=== PATIENT | male | born 1965 | race Caucasian/White ===

== ENCOUNTER 2024-08-17 00:59 | Observation (INO) | payer BC ==
--- NOTE | 2024-08-17 01:26 | ED ---
Abdominal Pain HPI - General Source: patient, family () Mode of arrival: ambulatory Limitations: no limitations <Alaina Greco - Last Filed: 08/17/24 04:12> <Edu Schreiber - Last Filed: 08/17/24 05:58> <Crispin Mckoy - Last Filed: 08/17/24 08:45> - General Chief Complaint: Abdominal Pain Stated Complaint: Abd Pain Time Seen by Provider: 08/17/24 01:26 - History of Present Illness Initial Comments: 58-year-old male presented the ER for evaluation of abdominal pain. Patient states yesterday he started to experience a severe lower burning abdominal discomfort. He does admit to radiation to his back. Patient was seen at [facility] twice with negative workup. Patient was discharged home with [place]. Patient states taking [place] does not improve symptoms. He denies any n ausea, vomiting, fevers, diarrhea, constipation, urinary complaints, scrotal pain or swelling or abnormal penile discharge. Patient is extremely anxious frequently pacing and unable to sit still. On examination, patient requesting medication to aid with sleep. Patient reports past medical history of hypertension and hyperlipidemia. Denies any dizziness, lightheadedness, chest pain, shortness of breath or peripheral edema. Patient reports he did fall on a ladder landing on abdomen weeks ago but that pain resolved prior to yesterday. (Alaina Greco) - Related Data Allergies Allergy/AdvReac Type Severity Reaction Status Date / Time No Known Allergies Allergy Verified 08/17/24 01:06 Review of Systems ROS Other: All systems not noted in ROS Statement are negative. <Alaina Greco - Last Filed: 08/17/24 04:12> ROS Other: All systems not noted in ROS Statement are negative. <Edu Schreiber - Last Filed: 08/17/24 05:58> ROS Other: All systems not noted in ROS Statement are negative. <Crispin Mckoy - Last Filed: 08/17/24 08:45> ROS Statement: Those systems with pertinent positive or pertinent negative responses have been documented in the HPI. Past Medical History Past Medical History: Hyperlipidemia, Hypertension History of Any Multi-Drug Resistant Organisms: None Reported Past Surgical History: No Surgical Hx Reported Past Psychological History: No Psychological Hx Reported Smoking Status: Never smoker Past Alcohol Use History: Occasional Past Drug Use History: None Reported <Alaina Greco - Last Filed: 08/17/24 04:12> General Exam Limitations: no limitations General appearance: alert, in no apparent distress, anxious (Pacing exam room unable to still) Respiratory exam: Present: normal lung sounds bilaterally. Absent: respiratory distress, wheezes, rales, rhonchi, stridor Cardiovascular Exam: Present: regular rate, normal rhythm, normal heart sounds. Absent: systolic murmur, diastolic murmur, rubs, gallop, clicks GI/Abdominal exam: Present: soft, normal bowel sounds. Absent: distended, tenderness, guarding, rebound, rigid Neurological exam: Present: alert, oriented X3, CN II-XII intact Psychiatric exam: Present: anxious (Pacing exam room unable to sit) Skin exam: Present: warm, dry, intact, normal color. Absent: rash <Alaina Greco - Last Filed: 08/17/24 04:12> Course <Alaina Greco - Last Filed: 08/17/24 04:12> Vital Signs 08/17/24 08/17/24 08/17/24 01:03 04:25 06:40 Temperature 98 F 97.9 F Pulse Rate 74 74 60 Respiratory 18 20 18 Rate Blood Pressure 126/73 163/92 165/93 O2 Sat by Pulse 95 95 100 Oximetry 08/17/24 08:12 Temperature Pulse Rate 86 Respiratory 17 Rate Blood Pressure 176/107 O2 Sat by Pulse 94 L Oximetry - Reevaluation(s) Reevaluation #1: 08/17/24 04:09 PAtient signed out to Dr. Schreiber pending CT results and disposition. (Alaina Greco) Medical Decision Making - Lab Data Result diagrams: 08/17/24 01:30 08/17/24 01:30 <Alaina Greco - Last Filed: 08/17/24 04:12> - Lab Data Result diagrams: 08/17/24 01:30 08/17/24 01:30 <Edu Schreiber - Last Filed: 08/17/24 05:58> - Lab Data Result diagrams: 08/17/24 01:30 08/17/24 01:30 <Crispin Mckoy - Last Filed: 06/13/25 08:45> - Medical Decision Making Was pt. sent in by a medical professional or institution (, PETER, EXTRACTOR OPERATOR, urgent care, hospital, or prison...) When possible be specific @ -[No] Did you speak to anyone other than the patient for history (EMS, parent, family, police, friend...)? What history was obtained from this source @ -[No] Did you review nursing and triage notes (agree or disagree)? Why? @ -[I reviewed and agree with nursing and triage notes] Were old charts reviewed (outside hosp., previous admission, EMS record, old EKG, old radiological studies, urgent care reports/EKG's, prison records)? Report findings @ -[No old charts were reviewed] Differential Abdominal Pain Men: Appendicitis, cholecystitis, diverticulosis, ischemic bowel, pancreatitis, hepatitis, UTI, gastroenteritis, AAA, incarcerated hernia, bowel obstruction, constipation, inflammatory bowel, hepatitis, peptic ulcer disease, splenic infarction, perforated viscus, testicular torsion, this is not meant to be an all-inclusive list EKG interpreted by me (3pts min.). @ -[EKG: Sinus rhythm incomplete right bundle branch block rate is 66, OR interval 154, QRS duration 105, QTc [address] segment elevation X-rays interpreted by me (1pt min.). @ -[None done] CT interpreted by me (1pt min.). @ -[None done] U/S interpreted by me (1pt. min.). @ -[None done] What testing was considered but not performed or refused? (CT, X-rays, U/S, labs)? Why? @ -[None] What meds were considered but not given or refused? Why? @ -[None] Did you discuss the management of the patient with other professionals (professionals i.e. , PETER, EXTRACTOR OPERATOR, lab, RT, psych nurse, bilingual social worker, policy intern, teacher, helicopter officer, bottle caser)? Give summary @ -[No] Was smoking cessation discussed for >3mins.? @ -[No] Was critical care preformed (if so, how long)? @ -[No] Were there social determinants of health that impacted care today? How? (Homelessness, low income, unemployed, alcoholism, drug addiction, transportation, low edu. Level, literacy, decrease access to med. care, [place] [facility], rehab)? @ -[No] Was there de-escalation of care discussed even if they declined (Discuss DNR or withdrawal of care, Hospice)? DNR status @ -[No] What co-morbidities impacted this encounter? (DM, HTN, Smoking, COPD, CAD, Cancer, CVA, ARF, Chemo, Hep., AIDS, mental health diagnosis, sleep apnea, morbid obesity)? @ -[None] Was patient admitted / discharged? Hospital course, mention meds given and route, prescriptions, significant lab abnormalities, going to OR and other pertinent info. @ -[hospital course] Undiagnosed new problem with uncertain prognosis? @ -[No] Drug Therapy requiring intensive monitoring for toxicity (Heparin, Nitro, Insulin, Cardizem)? @ -[No] Were any procedures done? @ -[No] Diagnosis/symptom? @ -[default] Acute, or Chronic, or Acute on Chronic? @ -[default] Uncomplicated (without systemic symptoms) or Complicated (systemic symptoms)? @ -[default] Side effects of treatment? @ -[No] Exacerbation, Progression, or Severe Exacerbation? @ -[No] Poses a threat to life or bodily function? How? (Chest pain, USA, AR, pneumonia, PE, COPD, DKA, ARF, appy, cholecystitis, CVA, Diverticulitis, Homicidal, Suicidal, threat to staff... and all critical care pts) @ -[No] (Edu Schreiber) Patient signed out to me pending results of CT imaging. Briefly, patient presents with intractable abdominal pain for few days. Workup at another hospital was apparently unremarkable but Tracie presents today for further evaluation his pain is still continued. His diffuse abdominal pain all over. Apparently has required numerous doses of Dilaudid here in the department. Labs were relatively unremarkable. CT abdomen pelvis as interpreted by myself shows inflammation in the epigastrium but otherwise relatively unremarkable. On my exam, abdomen is soft with nonfocal tenderness. I updated the patient. Due to the intractable abdominal pain, he will be admitted to the hospital. Surgery consulted. I spoke with the admitting medicine physician, Dr. De La Torre of [facility] hospitalist group who accepted the admission. Patient made NPO. Diagnosis/symptom? @ -Intractable abdominal pain of unknown etiology Acute, or Chronic, or Acute on Chronic? @ -Acute Uncomplicated (without systemic symptoms) or Complicated (systemic symptoms)? @ -Complicated Side effects of treatment? @ -None Exacerbation, Progression, or Severe Exacerbation] @ -No Poses a threat to life or bodily function? @ -Potentially, yes (Crispin Mckoy) - Lab Data Lab Results 08/17/24 08/17/24 08/17/24 Range/Units 01:30 01:30 01:30 WBC 8.77 (4.50-10.00) 10*3/uL RBC 5.44 (4.40-5.60) 10*6/uL Hgb 17.1 H (13.0-17.0) g/dL Hct 48.2 (39.6-50.0) % MCV 88.6 (80.0-97.0) fL MCH 31.4 (27.0-32.0) pg MCHC 35.5 (32.0-37.0) g/dL Plt Count 279 (140-440) 10*3/uL MPV 8.8 L (9.5-12.2) fL Immature Gran % (Auto) 0.3 % Neutrophils % 84.5 % Lymphocytes % 6.2 % Monocytes % 8.6 % Eosinophils % 0.2 % Basophils % 0.2 % Immature Gran # 0.03 (0.00-0.04) 10*3/uL Neutrophils # 7.41 (1.80-7.70) 10*3/uL Lymphocytes # 0.54 L (0.90-5.00) 10*3/uL Monocytes # 0.75 (0.20-1.00) 10*3/uL Eosinophils # 0.02 L (0.04-0.35) 10*3/uL Basophils # 0.02 (0.00-0.10) 10*3/uL Sodium 133 L (137-145) mmol/L Potassium 4.1 (3.5-5.1) mmol/L Chloride 100 (98-107) mmol/L Carbon Dioxide 25 (22-30) mmol/L Anion Gap 8 mmol/L BUN 23 H (9-20) mg/dL Creatinine 1.12 (0.66-1.25) mg/dL Est GFR (CKD-EPI)AfAm 83 (>60 ml/min/1.73 sqM) Est GFR (CKD-EPI)NonAf 72 (>60 ml/min/1.73 sqM) Glucose 128 H (74-99) mg/dL Plasma Lactic Acid Anthony 1.1 (0.7-2.0) mmol/L Calcium 9.3 (8.4-10.2) mg/dL Total Bilirubin 1.2 (0.2-1.3) mg/dL AST 56 (17-59) U/L ALT 55 H (4-49) U/L Alkaline Phosphatase 116 (38-126) U/L Total Protein 7.5 (6.3-8.2) g/dL Albumin 4.6 (3.5-5.0) g/dL Amylase 49 (30-110) U/L Lipase 61 (23-300) U/L Urine Color Urine Appearance (Clear) Urine pH (5.0-8.0) Ur Specific [place] (1.001-1.035) Urine Protein (Negative) Urine Glucose (UA) (Negative) Urine Ketones (Negative) Urine Blood (Negative) Urine Nitrite (Negative) Urine Bilirubin (Negative) Urine Urobilinogen (<2.0) mg/dL Ur Leukocyte Esterase (Negative) Urine RBC (0-5) /hpf Urine WBC (0-5) /hpf Urine Mucus (None) /hpf Urine Opiates Screen (NotDetected) Ur Oxycodone Screen (NotDetected) Urine Methadone Screen (NotDetected) Ur Barbiturates Screen (NotDetected) U Tricyclic Antidepress (NotDetected) Ur Phencyclidine Scrn (NotDetected) Ur Amphetamines Screen (NotDetected) U Methamphetamines Scrn (NotDetected) U Benzodiazepines Scrn (NotDetected) Urine Cocaine Screen (NotDetected) U Marijuana (THC) Screen (NotDetected) 08/17/24 08/17/24 Range/Units 02:46 02:46 WBC (4.50-10.00) 10*3/uL RBC (4.40-5.60) 10*6/uL Hgb (13.0-17.0) g/dL Hct (39.6-50.0) % MCV (80.0-97.0) fL MCH (27.0-32.0) pg MCHC (32.0-37.0) g/dL Plt Count (140-440) 10*3/uL MPV (9.5-12.2) fL Immature Gran % (Auto) % Neutrophils % % Lymphocytes % % Monocytes % % Eosinophils % % Basophils % % Immature Gran # (0.00-0.04) 10*3/uL Neutrophils # (1.80-7.70) 10*3/uL Lymphocytes # (0.90-5.00) 10*3/uL Monocytes # (0.20-1.00) 10*3/uL Eosinophils # (0.04-0.35) 10*3/uL Basophils # (0.00-0.10) 10*3/uL Sodium (137-145) mmol/L Potassium (3.5-5.1) mmol/L Chloride (98-107) mmol/L Carbon Dioxide (22-30) mmol/L Anion Gap mmol/L BUN (9-20) mg/dL Creatinine (0.66-1.25) mg/dL Est GFR (CKD-EPI)AfAm (>60 ml/min/1.73 sqM) Est GFR (CKD-EPI)NonAf (>60 ml/min/1.73 sqM) Glucose (74-99) mg/dL Plasma Lactic Acid Anthony (0.7-2.0) mmol/L Calcium (8.4-10.2) mg/dL Total Bilirubin (0.2-1.3) mg/dL AST (17-59) U/L ALT (4-49) U/L Alkaline Phosphatase (38-126) U/L Total Protein (6.3-8.2) g/dL Albumin (3.5-5.0) g/dL Amylase (30-110) U/L Lipase (23-300) U/L Urine Color Yellow Urine Appearance Clear (Clear) Urine pH 5.5 (5.0-8.0) Ur Specific [place] 1.050 H (1.001-1.035) Urine Protein Trace H (Negative) Urine Glucose (UA) Negative (Negative) Urine Ketones 2+ H (Negative) Urine Blood Moderate H (Negative) Urine Nitrite Negative (Negative) Urine Bilirubin Negative (Negative) Urine Urobilinogen 2.0 (<2.0) mg/dL Ur Leukocyte Esterase Negative (Negative) Urine RBC 27 H (0-5) /hpf Urine WBC 2 (0-5) /hpf Urine Mucus Few H (None) /hpf Urine Opiates Screen Detected H (NotDetected) Ur Oxycodone Screen Not Detected (NotDetected) Urine Methadone Screen Not Detected (NotDetected) Ur Barbiturates Screen Not Detected (NotDetected) U Tricyclic Antidepress Not Detected (NotDetected) Ur Phencyclidine Scrn Not Detected (NotDetected) Ur Amphetamines Screen Not Detected (NotDetected) U Methamphetamines Scrn Not Detected (NotDetected) U Benzodiazepines Scrn Not Detected (NotDetected) Urine Cocaine Screen Not Detected (NotDetected) U Marijuana (THC) Screen Not Detected (NotDetected) Disposition <Alaina Greco - Last Filed: 08/17/24 04:12> <Edu Schreiber - Last Filed: 08/17/24 05:58> Time of Disposition: 08:30 <Crispin Mckoy - Last Filed: 08/17/24 08:45> Clinical Impression: Intractable abdominal pain, Abdominal pain of unknown etiology Disposition: ADMITTED IP TO THIS [facility] Condition: Stable Referrals: Nonstaff,Physician [Primary Care Provider] - 1-2 days
[2024-08-17] MEDS: KETOROLAC 15 MG/ML 1 ML VIAL IVP STA (01:35)
[2024-08-17] MEDS: ONDANSETRON 4 MG/2 ML VIAL IVP STA (01:35)
[2024-08-17] MEDS: HYDROmorphone 0.5 MG/0.5 ML SYRINGE IVP STA ×2 (01:36→04:28)
[2024-08-17] MEDS: SODIUM CHLORIDE 0.9% 1,000 ML IV ONE (01:36)
[2024-08-17 01:43] LABS: Basophils # (A) 0.02 10*3/uL (0.00-0.10); Basophils % (A) 0.2 %; Eosinophils # (A) 0.02 10*3/uL (0.04-0.35); Eosinophils % (A) 0.2 %; HCT 48.2 % (39.6-50.0); HGB 17.1 g/dL (13.0-17.0); Lymphocytes # (A) 0.54 10*3/uL (0.90-5.00); Lymphocytes % (A) 6.2 %; MCH 31.4 pg (27.0-32.0); MCHC 35.5 g/dL (32.0-37.0); MCV 88.6 fL (80.0-97.0); Mean Platelet Volume 8.8 fL (9.5-12.2); Monocytes # (A) 0.75 10*3/uL (0.20-1.00); Monocytes % (A) 8.6 %; Neutrophils # (A) 7.41 10*3/uL (1.80-7.70); Neutrophils % (A) 84.5 %; Platelet Count 279 10*3/uL (140-440); RBC 5.44 10*6/uL (4.40-5.60); RDW 12.1 % (11.5-14.5); WBC 8.77 10*3/uL (4.50-10.00)
[2024-08-17 02:12] LABS: ALT 55 U/L (4-49); AST 56 U/L (17-59); African American GFR (CKD) 83 (>60 ml/min/1.73 sqM); Albumin 4.6 g/dL (3.5-5.0); Alkaline Phosphatase 116 U/L (38-126); Amylase 49 U/L (30-110); Anion Gap 8 mmol/L; Blood Urea Nitrogen 23 mg/dL (9-20); Calcium 9.3 mg/dL (8.4-10.2); Carbon Dioxide 25 mmol/L (22-30); Chloride 100 mmol/L (98-107); Glucose 128 mg/dL (74-99); Lipase 61 U/L (23-300); Non-African American GFR(CKD) 72 (>60 ml/min/1.73 sqM); Potassium 4.1 mmol/L (3.5-5.1); Sodium 133 mmol/L (137-145); Total Bilirubin 1.2 mg/dL (0.2-1.3); Total Protein 7.5 g/dL (6.3-8.2)
[2024-08-17] MEDS: HYDROmorphone 1 MG/ML 1 ML SYRINGE IVP STA ×3 (02:53→08:15)
[2024-08-17 03:42] LABS: Appearance,Urine Clear (Clear); Bilirubin,Urine Negative (Negative); Blood,Urine Moderate (Negative); Color,Urine Yellow; Glucose,Urine (UA) Negative (Negative); Ketones,Urine 2+ (Negative); Leukocyte Esterase,Urine Negative (Negative); Mucus,Urine Few /hpf; Nitrite,Urine Negative (Negative); PH, Urine 5.5 (5.0-8.0); Protein,Urine Trace (Negative); RBC,Urine 27 /hpf (0-5); WBC,Urine 2 /hpf (0-5)
[2024-08-17] MEDS: DICYCLOMINE 10 MG/ML 2 ML AMP IM STA (05:57)
[2024-08-17] MEDS: METOCLOPRAMIDE 5 MG/ML 2 ML VIAL IVP STA (06:49)
--- NOTE | 2024-08-17 07:49 | CT ---
EXAMINATION TYPE: CT abdomen pelvis wo con DATE OF EXAM: 08/17/2024 4:21 AM COMPARISON: None. CLINICAL INDICATION: Male, 58 years old with history of Lower abdominal pain, hematuria, TECHNIQUE: Axial images were obtained from above the diaphragm to the pubic rami in the axial plane a t 5 mm thick sections. Reconstructed images are reviewed on the computer in the coronal plane. CONTRAST: mL of . Study performed DLP: 7-8.4 mGycm, Automated exposure control for dose reduction was used. FINDINGS: Limited CT sections are obtained the lung bases. Mild bibasilar infiltrates are present correlate fo r atelectasis.. CT ABDOMEN: Some subtle inflammatory changes may be around the celiac axis and the epigastric region. Correlate with location of patient's pain. Liver: Normal Spleen: Normal Pancreas: Normal Adrenal glands: The adrenal glands are normal. Gallbladder: Surgically absent Kidneys: No masses are evident. No hydronephrosis is present. No cysts are present. Some minimal c ontrast within the bilateral kidneys from earlier CTA. Aorta: Vascular calcification is within the aorta. Celiac axis and superior mesenteric arteries are normal. Renal artery origin is normal. Inferior vena cava: Normal. CT PELVIS: Loops of bowel within the abdomen and pelvis are normal. This study is without oral contrast eval uation. Appendix: Normal as visualized. Urinary bladder: Contrast-filled from earlier exam Genitourinary structures: Prostate is prominent. Prostatic calcification is present Osseous structures: No suspicious lytic or sclerotic lesions. Scattered small inguinal lymph nodes ar e present IMPRESSION: 1. There is mild inflammatory changes at the level of the celiac axis and the epigastric region. 2. Nonvisualization of the appendix. No dilated tubular structure inflammatory change evident. [facility], , 08/17/2024 7:46 AM
[2024-08-17] MEDS: SODIUM CHLORIDE 0.9% 1,000 ML IV STA (08:09)
[2024-08-17] MEDS: PANTOPRAZOLE 40 MG/10 ML VIAL IVP STA (08:09)
[2024-08-17 08:29] LABS: Amphetamine Screen,Urine Not Detected (NotDetected); Barbiturate Screen,Urine Not Detected (NotDetected); Benzodiazepines Screen,Urine Not Detected (NotDetected); Cocaine Screen,Urine Not Detected (NotDetected); Methadone Screen, Urine Not Detected (NotDetected); Opiate Screen,Urine Detected (NotDetected); Oxycodone Screen, Urine Not Detected (NotDetected); Phencyclidine Screen,Urine Not Detected (NotDetected); Tricyclic Antidepressant,Urine Not Detected (NotDetected); Urn Cannabinoid Scrn Not Detected (NotDetected)
[2024-08-17] MEDS ORDERED: NALOXONE 0.4 MG/ML 1 ML VIAL IV PRN (08:38)
[2024-08-17] MEDS ORDERED: ONDANSETRON 4 MG/2 ML VIAL IVP PRN (08:38)
[2024-08-17] MEDS ORDERED: KETOROLAC 15 MG/ML 1 ML VIAL IVP PRN (08:38)
[2024-08-17] MEDS: HYDROmorphone 1 MG/ML 1 ML SYRINGE IVP PRN (09:50)
[2024-08-17] MEDS: HYDROmorphone 0.5 MG/0.5 ML SYRINGE IVP PRN (10:59)
[2024-08-17] MEDS: LISINOPRIL-HCTZ 20-12.5 MG 1 EACH TAB PO SCH (11:00)
[2024-08-17] MEDS ORDERED: IOPAMIDOL CONTRAST (ORAL USE) VIAL PO PRN (12:48)
--- NOTE | 2024-08-17 13:06 | P.GSCN ---
History of Present Illness Consult date: 08/17/24 History of present illness: CHIEF COMPLAINT: Abdominal pain HISTORY OF PRESENT ILLNESS: This is a 58-year-old male who presented with abdominal pain. Patient reports pain is crampy and across the mid lower abdomen and radiates to his back. Patient reports has had the pain for about 2 days. Per ER charting patient had been to [facility] twice with a negative workup. Patient was discharged home with [place]. He denies any nausea vomiting. Denies any diarrhea or constipation. Denies any urinary symptoms. Patient is very fidgety and is unable to sit still. He is very anxious. Blood pressure is elevated. CT scan abdomen and pelvis reports mild inflammatory changes at the level of the celiac axis and epigastric region. Nonvisualization of the appendix. No dilated tubular structure inflammatory change evident. Patient with history of cholecystectomy. Patient does report falling on his right side flank and abdomen area onto a ladder a few weeks ago. Patient reports that that pain resolved. PAST MEDICAL HISTORY: Hypertension, hyperlipidemia PAST SURGICAL HISTORY: Cholecystectomy MEDICATIONS: See below ALLERGIES: See below SOCIAL HISTORY: No illicit drug use. Occasional alcohol use. Patient does report drinking few beers but not daily REVIEW OF SYSTEMS: CONSTITUTIONAL: Denies fever or chills. HEENT: Denies blurred vision, vision changes, or eye pain. Denies hemoptysis CARDIOVASCULAR: Denies chest pain or pressure. RESPIRATORY: No shortness of breath. GASTROINTESTINAL: See HPI for pertinent findings HEMATOLOGIC: Denies bleeding disorders. GENITOURINARY: Denies any blood in urine or increased urinary frequency. SKIN: Denies pruitis. Denies rash. PHYSICAL EXAM: VITAL SIGNS: Reviewed GENERAL: Well-developed in no acute distress. Face is red. Very anxious HEENT: No sclera icterus. Extraocular movements grossly intact. Moist buccal mucosa. Head is atraumatic, normocephalic. No nasal drainage. ABDOMEN: Soft. Nondistended. Currently nontender. Patient did receive pain medication about an hour ago. No rebound or guarding noted. NEUROLOGIC: Alert and oriented. Cranial nerves II through XII grossly intact. Psychiatric exam: Patient is anxious. Fidgeting constantly. Sitting forward in bed and then laying back down repetitively. LABORATORY DATA: WBC 8.77 Hgb 17.1 platelets 279 Sodium 133 potassium 4.1 creatinine 1.12 Lactic acid 1.1 Total bilirubin 1.2 AST 56 ALT 55 alk phos 116 lipase 61 Urinalysis with moderate blood Opiates detected on urine drug screen IMAGING: CT scan abdomen pelvis there is mild inflammatory changes at the level of the celiac axis and epigastric region. Nonvisualization of the appendix. No dilated tubular structure inflammatory changes evident ASSESSMENT: 1. Abdominal pain 2. Inflammatory changes at the level of the celiac axis and epigastric region noted on CAT scan PLAN: -Discussed physical exam findings and CAT scan findings with Dr. Dunlap. CT scan without contrast did not have significant findings to contribute to patient's symptoms. A CT scan and pelvis with oral contrast has been ordered for further evaluation of abdominal pain. Patient had reported falling and hitting the right side of the abdomen and right flank area a few weeks ago. His UA does have moderate amount of blood noted. Will consult urology for microscopic hematuria. - Continue pain management - Continue IV fluids - Further recommendations forthcoming - Keep patient n.p.o. for now Physician [employer] Product Consultant note has been reviewed by physician. Signing provider agrees with the documented findings, assessment, and plan of care. Past Medical History Past Medical History: Hyperlipidemia, Hypertension History of Any Multi-Drug Resistant Organisms: None Reported Past Surgical History: No Surgical Hx Reported Past Psychological History: No Psychological Hx Reported Smoking Status: Never smoker Past Alcohol Use History: Occasional Past Drug Use History: None Reported Medications and Allergies Home Medications Medication Instructions Recorded Confirmed Type HYDROcodone/APAP 5-325MG [[place] 1 tab PO Q4HR PRN 08/17/24 08/17/24 History 5-325] Lisinopril-Hctz 20-12.5 mg 1 tab PO DAILY 08/17/24 08/17/24 History [Zestoretic 20-12.5] Pravastatin Sodium [Pravachol] 10 mg PO DAILY 08/17/24 08/17/24 History Allergies Allergy/AdvReac Type Severity Reaction Status Date / Time No Known Allergies Allergy Verified 08/17/24 09:38 Surgical - Exam Vital Signs Temp Pulse Resp BP Pulse Ox 98 F 74 18 126/73 95 08/17/24 01:03 08/17/24 01:03 08/17/24 01:03 08/17/24 01:03 08/17/24 01:03 Results - Labs 08/17/24 01:30 08/17/24 01:30 Abnormal Lab Results - Last 24 Hours (Table) 08/17/24 08/17/24 08/17/24 Range/Units 01:30 01:30 02:46 Hgb 17.1 H (13.0-17.0) g/dL MPV 8.8 L (9.5-12.2) fL Lymphocytes # 0.54 L (0.90-5.00) 10*3/uL Eosinophils # 0.02 L (0.04-0.35) 10*3/uL Sodium 133 L (137-145) mmol/L BUN 23 H (9-20) mg/dL Glucose 128 H (74-99) mg/dL ALT 55 H (4-49) U/L Ur Specific [place] 1.050 H (1.001-1.035) Urine Protein Trace H (Negative) Urine Ketones 2+ H (Negative) Urine Blood Moderate H (Negative) Urine RBC 27 H (0-5) /hpf Urine Mucus Few H (None) /hpf Urine Opiates Screen (NotDetected) 08/17/24 Range/Units 02:46 Hgb (13.0-17.0) g/dL MPV (9.5-12.2) fL Lymphocytes # (0.90-5.00) 10*3/uL Eosinophils # (0.04-0.35) 10*3/uL Sodium (137-145) mmol/L BUN (9-20) mg/dL Glucose (74-99) mg/dL ALT (4-49) U/L Ur Specific [place] (1.001-1.035) Urine Protein (Negative) Urine Ketones (Negative) Urine Blood (Negative) Urine RBC (0-5) /hpf Urine Mucus (None) /hpf Urine Opiates Screen Detected H (NotDetected) Diabetes panel 08/17/24 Range/Units 01:30 Sodium 133 L (137-145) mmol/L Potassium 4.1 (3.5-5.1) mmol/L Chloride 100 (98-107) mmol/L Carbon Dioxide 25 (22-30) mmol/L BUN 23 H (9-20) mg/dL Creatinine 1.12 (0.66-1.25) mg/dL Glucose 128 H (74-99) mg/dL Calcium 9.3 (8.4-10.2) mg/dL AST 56 (17-59) U/L ALT 55 H (4-49) U/L Alkaline Phosphatase 116 (38-126) U/L Total Protein 7.5 (6.3-8.2) g/dL Albumin 4.6 (3.5-5.0) g/dL Calcium panel 08/17/24 Range/Units 01:30 Calcium 9.3 (8.4-10.2) mg/dL Albumin 4.6 (3.5-5.0) g/dL Pituitary panel 08/17/24 Range/Units 01:30 Sodium 133 L (137-145) mmol/L Potassium 4.1 (3.5-5.1) mmol/L Chloride 100 (98-107) mmol/L Carbon Dioxide 25 (22-30) mmol/L BUN 23 H (9-20) mg/dL Creatinine 1.12 (0.66-1.25) mg/dL Glucose 128 H (74-99) mg/dL Calcium 9.3 (8.4-10.2) mg/dL Adrenal panel 08/17/24 Range/Units 01:30 Sodium 133 L (137-145) mmol/L Potassium 4.1 (3.5-5.1) mmol/L Chloride 100 (98-107) mmol/L Carbon Dioxide 25 (22-30) mmol/L BUN 23 H (9-20) mg/dL Creatinine 1.12 (0.66-1.25) mg/dL Glucose 128 H (74-99) mg/dL Calcium 9.3 (8.4-10.2) mg/dL Total Bilirubin 1.2 (0.2-1.3) mg/dL AST 56 (17-59) U/L ALT 55 H (4-49) U/L Alkaline Phosphatase 116 (38-126) U/L Total Protein 7.5 (6.3-8.2) g/dL Albumin 4.6 (3.5-5.0) g/dL
[2024-08-17] MEDS ORDERED: HYDROcodone/APAP 5-325MG 1 EACH TAB PO PRN (13:27)
--- NOTE | 2024-08-17 13:40 | P.HPIM ---
History of Present Illness Patient is a 58-year-old male came with complaints of crampy abdominal pain all over the abdomen even radiating to the back it sometimes is burning sensation. Patient was seen at [facility] was given [place] was discharged patient had a CT of the abdomen dated which was within normal notes patient had a CT abdomen here again which showed mild inflammatory changes in the celiac axis and epigastric region. There is no evidence of appendicitis patient's lipase is within normal limits. Patient [place] structures are within normal limits on the CAT scan. Patient any fever chills diarrhea denied any significant nausea vomi ting. REVIEW OF SYSTEMS: All other systems are negative except those mentioned in the HPI PHYSICAL EXAMINATION: GENERAL: The patient is alert and oriented x3, not in any acute distress. Well d eveloped, well nourished. HEENT: Pupils are round and equally reacting to light. EOMI. No scleral icterus. No conjunctival pallor. Normocephalic, atraumatic. No pharyngeal erythema. No thyromegaly. CARDIOVASCULAR: S1 and S2 present. No murmurs, rubs, or gallops. PULMONARY: Chest is clear to auscultation, no wheezing or crackles. ABDOMEN: Soft, nontender, nondistended, normoactive bowel sounds. No palpable organomegaly. MUSCULOSKELETAL: No joint swelling or deformity. EXTREMITIES: No cyanosis, clubbing, or pedal edema. NEUROLOGICAL: Gross neurological examination did not reveal any focal deficits. SKIN: No rashes. Assessment and plan -Abdominal pain possibly functional dyspepsia or peptic ulcer disease patient was started on Protonix and Maalox. Patient will be started on clear liquid diet will advance to full liquid if patient is able to tolerate diet well without any pain without pain medications patient will be discharged with Protonix for 15 days and follow-up with gastroenterology for possible upper GI endoscopy considering his age. -Hyponatremia mild. This is secondary to his hydrochlorothiazide. Since his mild hyponatremia with I am not changing his medications - Hypertension elevated blood pressure secondary to pain no change in blood pressure medications as needed at this time. Plan as mentioned above Past Medical History Past Medical History: Hyperlipidemia, Hypertension History of Any Multi-Drug Resistant Organisms: None Reported Past Surgical History: No Surgical Hx Reported Past Psychological History: No Psychological Hx Reported Smoking Status: Never smoker Past Alcohol Use History: Occasional Past Drug Use History: None Reported Medications and Allergies Home Medications Medication Instructions Recorded Confirmed Type HYDROcodone/APAP 5-325MG [[place] 1 tab PO Q4HR PRN 08/17/24 08/17/24 History 5-325] Lisinopril-Hctz 20-12.5 mg 1 tab PO DAILY 08/17/24 08/17/24 History [Zestoretic 20-12.5] Pantoprazole Sodium [Protonix] 20 mg PO BID #30 tab 08/17/24 Rx Pravastatin Sodium [Pravachol] 10 mg PO DAILY 08/17/24 08/17/24 History Allergies Allergy/AdvReac Type Severity Reaction Status Date / Time No Known Allergies Allergy Verified 08/17/24 09:38 Physical Exam Vitals: Vital Signs Temp Pulse Resp BP Pulse Ox 08/17/24 13:30 70 17 176/109 95 08/17/24 10:57 71 18 94 L 08/17/24 09:44 64 19 161/101 95 08/17/24 08:12 86 17 176/107 94 L 08/17/24 06:40 97.9 F 60 18 165/93 100 08/17/24 04:25 74 20 163/92 95 08/17/24 01:03 98 F 74 18 126/73 95 Intake and Output 08/16/24 08/17/24 08/17/24 22:59 06:59 14:59 Other: Weight 97.522 kg Results CBC & Chem 7: 08/17/24 01:30 08/17/24 01:30 Labs: Abnormal Lab Results - Last 24 Hours (Table) 08/17/24 08/17/24 08/17/24 Range/Units 01:30 01:30 02:46 Hgb 17.1 H (13.0-17.0) g/dL MPV 8.8 L (9.5-12.2) fL Lymphocytes # 0.54 L (0.90-5.00) 10*3/uL Eosinophils # 0.02 L (0.04-0.35) 10*3/uL Sodium 133 L (137-145) mmol/L BUN 23 H (9-20) mg/dL Glucose 128 H (74-99) mg/dL ALT 55 H (4-49) U/L Ur Specific [place] 1.050 H (1.001-1.035) Urine Protein Trace H (Negative) Urine Ketones 2+ H (Negative) Urine Blood Moderate H (Negative) Urine RBC 27 H (0-5) /hpf Urine Mucus Few H (None) /hpf Urine Opiates Screen (NotDetected) 08/17/24 Range/Units 02:46 Hgb (13.0-17.0) g/dL MPV (9.5-12.2) fL Lymphocytes # (0.90-5.00) 10*3/uL Eosinophils # (0.04-0.35) 10*3/uL Sodium (137-145) mmol/L BUN (9-20) mg/dL Glucose (74-99) mg/dL ALT (4-49) U/L Ur Specific [place] (1.001-1.035) Urine Protein (Negative) Urine Ketones (Negative) Urine Blood (Negative) Urine RBC (0-5) /hpf Urine Mucus (None) /hpf Urine Opiates Screen Detected H (NotDetected)
--- NOTE | 2024-08-17 13:41 | P.DS ---
Providers Date of admission: 08/17/24 08:38 Attending physician: Jonathan De La Torre MD Consults: 08/17/24 08:38 Consult Physician Routine Consulting Provider: Rolando Dunlap Consult Reason/Comments: intractable abdominal pain Do you want consulting provider notified?: Yes 08/17/24 12:49 Consult Physician Routine Consulting Provider: Santhosh Carolina Consult Reason/Comments: microscopic hematuria on UA Do you want consulting provider notified?: Yes Primary care physician: Physician Nonstaff Hospital Course: Patient is a 58-year-old male came with complaints of crampy abdominal pain all over the abdomen even radiating to the back it sometimes is burning sensation. Patient was seen at [facility] was given [place] was discharged patient had a CT of the abdomen dated which was within normal notes patient had a CT abdomen here again which showed mild inflammatory changes in the celiac axis and epigastric region. There is no evidence of appendicitis patient's lipase is within normal limits. Patient [place] structures are within normal limits on the CAT scan. Patient any fever chills diarrhea denied any significant nausea vomiting. REVIEW OF SYSTEMS: All other systems are negative except those mentioned in the HPI PHYSICAL EXAMINATION: GENERAL: The patient is alert and oriented x3, not in any acute distress. Well developed, well nourished. HEENT: Pupils are round and equally reacting to light. EOMI. No scleral icterus. No conjunctival pallor. Normocephalic, atraumatic. No pharyngeal erythema. No thyromegaly. CARDIOVASCULAR: S1 and S2 present. No murmurs, rubs, or gallops. PULMONARY: Chest is clear to auscultation, no wheezing or crackles. ABDOMEN: Soft, nontender, nondistended, normoactive bowel sounds. No palpable organomegaly. MUSCULOSKELETAL: No joint swelling or deformity. EXTREMITIES: No cyanosis, clubbing, or pedal edema. NEUROLOGICAL: Gross neurological examination did not reveal any focal deficits. SKIN: No rashes. Assessment and plan -Abdominal pain possibly functional dyspepsia or peptic ulcer disease patient was started on Protonix and Maalox. Patient will be started on clear liquid diet will advance to full liquid if patient is able to tolerate diet well without any pain without pain medications patient will be discharged with Protonix for 15 days and follow-up with gastroenterology for possible upper GI endoscopy considering his age. -Hyponatremia mild. This is secondary to his hydrochlorothiazide. Since his mild hyponatremia with I am not changing his medications - Hypertension elevated blood pressure secondary to pain no change in blood pressure medications as needed at this time. Plan as mentioned above Patient Condition at Discharge: Stable Plan - Discharge Summary New Discharge Prescriptions: New Pantoprazole Sodium [Protonix] 20 mg PO BID #30 tab No Action HYDROcodone/APAP 5-325MG [[place] 5-325] 1 tab PO Q4HR PRN PRN Reason: Pain Pravastatin Sodium [Pravachol] 10 mg PO DAILY Lisinopril-Hctz 20-12.5 mg [Zestoretic 20-12.5] 1 tab PO DAILY Discharge Medication List HYDROcodone/APAP 5-325MG [[place] 5-325] 1 tab PO Q4HR PRN 08/17/24 [History] Lisinopril-Hctz 20-12.5 mg [Zestoretic 20-12.5] 1 tab PO DAILY 08/17/24 [History] Pantoprazole Sodium [Protonix] 20 mg PO BID #30 tab 08/17/24 [Rx] Pravastatin Sodium [Pravachol] 10 mg PO DAILY 08/17/24 [History] Follow up Appointment(s)/Referral(s): Harriet De La O MD [STAFF PHYSICIAN] - 1 Week Nonstaff,Physician [Primary Care Provider] - 1-2 days Discharge Disposition: HOME SELF-CARE
[2024-08-17] MEDS: MAG HYDROX/AL HYDROX/SIMETH 30 ML CUP PO SCH (14:15)
[2024-08-17] MEDS: PANTOPRAZOLE 40 MG/10 ML VIAL IVP SCH (14:15)
--- NOTE | 2024-08-17 16:35 | CT ---
EXAMINATION TYPE: CT abdomen pelvis wo con DATE OF EXAM: 08/17/2024 COMPARISON: 08/17/2024 at 4:12 AM CLINICAL INDICATION: Male, 58 years old with history of abdominal pain; PHH, abd pain TECHNIQUE: CT scan of the abdomen and pelvis is performed without oral or IV contrast. CT DLP: [address] CTDI: mGy Automated exposure control for dose reduction was used. FINDINGS: Within the limitations of a non-contrast study, the following observations are made. The lungs are clear. There is surgical absence of the gallbladder. There is no biliary ductal dilatation. There is no organomegaly of the liver, pancreas, spleen or adrenal glands. There are no renal calcifications or hydronephrosis. The caliber of the abdominal aorta is normal and there is no retroperitoneal adenopathy or hemorrhage . The bowel loops are normal in caliber is no evidence of obstruction. No inflammatory changes are iden tified in the mesentery and there is no free intraperitoneal air or fluid. There is no pelvic mass, free fluid, abscess or adenopathy. There is mild diverticulosis of the colon without CT evidence of diverticulitis. The osseous structures and soft tissues are unremarkable. IMPRESSION: No significant abnormality seen. [facility], , 08/17/2024 4:32 PM
[2024-08-17 17:12] VITALS: RESP 17
[2024-08-17 18:52] VITALS: BP 165/105; PULSE 81; TEMP 97.8
[2024-08-18] MEDS ORDERED: PRAVASTATIN SODIUM 20 MG TAB PO SCH (09:00)
== END 2024-08-17 18:30 | disposition home or self-care (01) ==
LOC: EC 00:59 → 6NMEDSUR 08:38
PROVIDERS: ADMIT Internal Medicine; ATTEND Internal Medicine
DX: R10.30 Lower abdominal pain, unspecified (principal); R31.29 Other microscopic hematuria; E87.1 Hypo-osmolality and hyponatremia; I10 Essential (primary) hypertension; E78.5 Hyperlipidemia, unspecified; Z90.49 Acquired absence of other specified parts of digestive tract; Z91.81 History of falling; Z79.899 Other long term (current) drug therapy
CPT/HCPCS: 96376; 96361; 96372; 96374; 96375; 99285; 36415; 80053; 82150; 83605; 83690; 85025; 81001; 80306; 74176; G0378; J0500; J2765; J2405; J1171 ×2; J1885; J2470